=== PATIENT | male | born 1965 | race African-American/Black ===

== ENCOUNTER 2020-06-09 03:08 | Inpatient (IN) | payer MEDICAID ==
[~2020-06-09] VITALS: Ht 172.7 cm; Wt 104.8 kg
[2020-06-09] MEDS ORDERED: ETOMIDATE (2MG/ML) 20ML VIAL IV ONE ×2 (03:17)
[2020-06-09] MEDS ORDERED: SUCCINYLCHOLINE CHLORIDE 20 MG/ML 10ML VIAL IV ONE ×3 (03:17→08:11)
[2020-06-09] MEDS ORDERED: MIDAZOLAM DRIP 50 mg/50mL 50 ML IV ONE ×2 (03:17→21:57)
[2020-06-09 03:45] VITALS: BP 125/53
[2020-06-09] MEDS ORDERED: ACETAMINOPHEN 650 MG RECT SUPP PR ONE ×2 (03:45→04:30)
[2020-06-09] MEDS ORDERED: methylPREDNISolone SOD SUCC 125 MG/2 ML VL ONE (03:59)
[2020-06-09] MEDS: MIDAZOLAM DRIP 50 mg/50mL 50 ML IV SCH ×3 (04:00→07:00)
[2020-06-09] MEDS: NOREPINEPHRINE 8 MG/250ML KIT 250 ML IV SCH (04:00)
[2020-06-09] MEDS ORDERED: NOREPINEPHRINE 8 MG/250ML KIT 250 ML IV ONE (04:26)
[2020-06-09] MEDS ORDERED: DexAMETHasone SOD PHOS 10MG/1ML VIAL INJ IV ONE (05:00)
[2020-06-09] MEDS ORDERED: DOXYCYCLINE 100MG/250ML 250 ML IV ONE (05:00)
[2020-06-09 05:42] LABS: Calcium 8.5 mg/dL (8.5-10.1); Lactic Acid w/Reflex 9.5 mmol/L (0.4-2.0); Potassium 3.4 mmol/L (3.5-5.1)
[2020-06-09 05:45] LABS: INR 1.13 (0.9-1.15); Partial Thromboplastin Time 25.8 sec (23.0-31.2)
[2020-06-09 05:51] LABS: Albumin 2.6 g/dL (3.4-5.0); BUN/Creatinine Ratio 9.6; Bilirubin, Total 0.6 mg/dL (0.2-1.0); Magnesium 2.6 mg/dL (1.6-2.6)
[2020-06-09] MEDS ORDERED: methylPREDNISolone SOD SUCC 125 MG/2 ML VL IV ONE (06:00)
[2020-06-09 06:20] VITALS: BP 122/85
[2020-06-09] MEDS ORDERED: PROPOFOL 100 ML IV ONE ×2 (06:29→21:56)
[2020-06-09] MEDS ORDERED: PROPOFOL 100 ML IV SCH (06:45)
[2020-06-09] MEDS ORDERED: SODIUM BICARBONATE 8.4 % INJ 50ML VIAL IV ONE ×2 (07:00→08:00)
[2020-06-09] MEDS ORDERED: ALBUTEROL SULF 2.5 MG/0.5ML(0.5%) NEB SOLN NEB PRN (07:00)
[2020-06-09] MEDS ORDERED: ONDANSETRON HCL 4 MG/2 ML VIAL IV PRN (07:00)
[2020-06-09] MEDS ORDERED: SODIUM CHLORIDE 0.9% 1,000 ML IV SCH (07:00)
[2020-06-09] MEDS ORDERED: ACETAMINOPHEN 500 MG TAB PO PRN (07:00)
[2020-06-09] MEDS ORDERED: MORPHINE SULF INJ 2 MG/ML SYRINGE 1ML IV PRN (07:00)
[2020-06-09] MEDS ORDERED: SODIUM CHLORIDE 0.9% 1,000 ML IV ONE ×2 (07:00)
[2020-06-09] MEDS ORDERED: IPRATROPIUM BROM 0.5 MG/2.5ML INH SOL NEB PRN (07:00)
[2020-06-09] MEDS ORDERED: NITROGLYCERIN 0.4 MG SL TAB SL PRN (07:00)
[2020-06-09] MEDS ORDERED: fentaNYL Drip 2500mCg/250mlNS 250 ML IV ONE (07:41)
[2020-06-09 07:49] LABS: Magnesium 2.7 mg/dL (1.6-2.6)
[2020-06-09] MEDS ORDERED: PHENYLEPHRINE IV 250 ML IV ONE (07:55)
[2020-06-09 07:58] LABS: CRP High Sensitivity 11.2 mg/dL (< 0.3)
[2020-06-09] MEDS ORDERED: SODIUM BICARBONATE 8.4% INJ 50ML SYRINGE ONE ×2 (08:16→08:48)
[2020-06-09] MEDS ORDERED: FUROSEMIDE 40 MG/4 ML VIAL ONE (08:20)
[2020-06-09] MEDS: PROPOFOL 100 ML IV SCH ×4 (08:34→21:56)
[2020-06-09] MEDS: fentaNYL Drip 2500mCg/250mlNS 250 ML IV SCH ×2 (08:34→21:15)
[2020-06-09] MEDS: PHENYLEPHRINE IV 250 ML IV SCH ×3 (08:34→21:47)
[2020-06-09] MEDS ORDERED: FUROSEMIDE 20 MG/2 ML VIAL IV ONE (08:45)
[2020-06-09] MEDS: SODIUM BICARBONATE 50ML VIAL 100 ML in SOD CHL 0.45% 1,000 ML IV SCH ×2 (08:52→17:17)
[2020-06-09] MEDS ORDERED: cefTRIAXone 1GM/50ML D5W 50 ML IV SCH (09:00)
[2020-06-09] MEDS ORDERED: VASOPRESSIN 50 UNITS in D5W 5% 247.5 ML IV SCH (09:00)
[2020-06-09] MEDS ORDERED: ASCORBIC ACID 1,000 MG TAB PO SCH (10:00)
[2020-06-09] MEDS ORDERED: ASPirin 81 mg TAB PO SCH (10:00)
[2020-06-09] MEDS ORDERED: ENOXAPARIN SOD 40 MG/0.4 ML SYRINGE SC SCH (10:00)
[2020-06-09] MEDS ORDERED: CHOLECALCIFEROL (VITD3) 2,000 UNIT CAP/TAB PO SCH (10:00)
[2020-06-09] MEDS ORDERED: HEPARIN 1,000 UNITS/ml 1ML VIAL IV ONE (10:00)
[2020-06-09] MEDS ORDERED: DOXYCYCLINE 100MG/250ML 250 ML IV SCH (10:00)
[2020-06-09] MEDS ORDERED: DexAMETHasone SOD PHOS 10MG/1ML VIAL INJ IV SCH (10:00)
[2020-06-09] MEDS ORDERED: EPINEPHrine HCL 250 ML IV SCH (10:30)
[2020-06-09 12:30] VITALS: BP 80/49
[2020-06-09 16:02] VITALS: BP 108/71
[2020-06-09] MEDS ORDERED: ATROPINE SULF 1 MG/10ml SYR IV ONE (19:00)
[2020-06-09] MEDS ORDERED: EPINEPHrine HCL 1 MG/10 ML SYRG IV ONE (19:00)
[2020-06-09] MEDS ORDERED: CALCIUM CHLOR(10%) 100MG/ML 10ML SYRINGE IV ONE (19:00)
[2020-06-09] MEDS ORDERED: SODIUM BICARBONATE 8.4% INJ 50ML SYRINGE IV ONE (19:00)
[2020-06-09 19:16] VITALS: BP 89/52
[2020-06-09] MEDS ORDERED: DOPamine 1600MCG/ML D5W 250 ML IV ONE (23:25)
[2020-06-09 23:27] VITALS: BP 34/23
[2020-06-09] MEDS ORDERED: DOPamine 1600MCG/ML D5W 250 ML IV SCH (23:30)
[2020-06-10] MEDS ORDERED: EPINEPHrine HCL 1 MG/10 ML SYRG IV ONE (12:29)
== END 2020-06-09 23:37 | DRG 720 ==
LOC: EDBD 03:08 → ER 03:14 → TELE 03:15 → ICU WEST 09:09 → TELE 10:49
PROVIDERS: ADMIT Nurse Practitioner; ATTEND Internal Medicine Pulmonary Disease
PROC: 0BH17EZ Insertion of Endotracheal Airway into Trachea, Via Natural or Artificial Opening (ICD-10-PCS; principal; 2020-06-09)
PROC: 5A1935Z Respiratory Ventilation, Less than 24 Consecutive Hours (ICD-10-PCS; 2020-06-09)
PROC: 5A12012 Performance of Cardiac Output, Single, Manual (ICD-10-PCS; 2020-06-09)
PROC: 06HY33Z Insertion of Infusion Device into Lower Vein, Percutaneous Approach (ICD-10-PCS; 2020-06-09)
DX: A41.89 Other specified sepsis (principal); U07.1 COVID-19; J12.82 Pneumonia due to coronavirus disease 2019; J96.01 Acute respiratory failure with hypoxia; R65.21 Severe sepsis with septic shock; I21.4 Non-ST elevation (NSTEMI) myocardial infarction; E87.2 Acidosis; I46.9 Cardiac arrest, cause unspecified; E66.9 Obesity, unspecified; Z68.35 Body mass index [BMI] 35.0-35.9, adult
CPT/HCPCS: 31500; 36415; 36600; 71045; 80053; 82728; 82805; 83036; 83605; 83615; 83735; 83880; 84443; 84484; 85379; 85610; 85730; 86141; 87040; 87070; 87086; 87205; 87426; 93005; 94002; 94003; 96365; 96366; 96368; 96375; 99152; 99153; 99291; G0378; J0171; J0330; J0696; J1100; J2250; J2704; J3490; J7060